=== PATIENT | female | born 1930 | race Caucasian/White ===

== ENCOUNTER → 2016-04-16 | Outpatient (CLI) | payer MEDICARE, BC ==
[~2016-04-16] MED LIST: CALCIUM 500 +1 EACH PO; CARTIA XT300 MG PO; CIPRO DPS500 MG PO; COLACE-DPS100 MG PO; COUMADIN2.5 MG PO; COUMADIN4 MG PO; FASLODEX IM; IBRANCE125 MG PO; KENALOG 0.1% D454 GM TP; KEPPRA DPS500 MG PO; LANTUS SOL100 UNIT/1 SQ; LANTUS100 UNITS/ SQ; LISINOPRIL40 MG PO; LOVENOX DP40 MG/0.4 SQ; MULTI VITAMIN1 EACH PO; PRILOSEC DPS20 MG PO; SYNTHROID75 MCG PO; TYLENOL DPS325 MG PO; VITAMIN E1000 UNIT PO; ZOMETA4 MG/5 ML IV
== END | disposition home or self-care (01) ==
LOC: PTH.S 12:23
DX: C50.911 Malignant neoplasm of unspecified site of right female breast (principal); C79.31 Secondary malignant neoplasm of brain; I10 Essential (primary) hypertension; K76.89 Other specified diseases of liver; R18.8 Other ascites

== ENCOUNTER 2016-04-26 13:38 | Inpatient (IN) | payer OTHER, MEDICARE, BC ==
--- NOTE | 2016-05-21 09:34 | DS ---
ADMIT: 04/26/2016 RM/LOC: [address] [facility] MR#: [id number] [facility] [address] [place], [place] [id number] [address] [place], [place] [address] Discharge Summary SEX: F AGE: 85 : 1930 ADMISSION DATE: 04/26/2016 DISCHARGE DATE: 04/29/2016 Date of was 04/29/2016. FINAL DIAGNOSES: 1. Metastatic breast cancer. 2. Respiratory failure. 3. Ascites. 4. Diabetes mellitus type 2. 5. Brain metastasis. 6. Seizure disorder. HOSPITAL COURSE: The patient had been transferred to inpatient hospice. The hospice team was available, and we were titrating her meds. She did require continuous IV infusion of pain medication. The patient then did on the morning of 04/29/2016. Kim Del Rio MD/ saeed JOB #: [id number] CC: Kim Del Rio MD, Attending Physician Kim Del Rio MD, Family Physician
== END 2016-04-29 09:20 | disposition expired | DRG 435 ==
LOC: 3ICU 13:38 → 5MS 13:38
PROVIDERS: ADMIT Internal Medicine
DX: C78.7 Secondary malignant neoplasm of liver and intrahepatic bile duct (principal); J96.90 Respiratory failure, unspecified, unspecified whether with hypoxia or hypercapnia; C79.31 Secondary malignant neoplasm of brain; C79.51 Secondary malignant neoplasm of bone; R18.8 Other ascites; E11.9 Type 2 diabetes mellitus without complications; G40.909 Epilepsy, unspecified, not intractable, without status epilepticus; Z51.5 Encounter for palliative care; Z85.3 Personal history of malignant neoplasm of breast